=== PATIENT | female | born 1955 | race Hispanic/Latino ===

== ENCOUNTER 2018-05-04 09:14 | Day surgery (SDC) | payer BC ==
[2018-05-02 14:12] VITALS: BMI 36.3
[2018-05-04] MEDS ORDERED: Propofol 10 mg/ml Inj (20 ML) ONE (11:30)
[2018-05-04] MEDS ORDERED: HYDROmorphone 0.5 mg/0.5 ml ISec IVP PRN (11:47)
--- NOTE | 2018-05-04 12:11 | PCM.SURG1 ---
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 good hemostasis, no complicaitns. left labial 1cm cyst along upper one third Post-Operative Diagnosis: same as above Operation Performed: Hysteroscopic myomecotmy, dilation and currettage, incisin and drainage of left labial cyst Specimen/Specimens Removed: endocervical currettings, endometrial currettings, submcuosal myoma, cyst contents (appears to be sebbacious) Estimated Blood Loss: EBL {In ML}: 5 Blood Products Given: N/A Drains Used: No Drains Date of Surgery/Procedure: 05/04/18 Time of Surgery/Procedure: 12:00
[2018-05-04 13:46] VITALS: RESP 18; TEMP 97.7
[2018-05-04 15:00] VITALS: BP 110/60; PULSE 65; O2SAT 99
--- NOTE | 2018-05-05 00:05 | OP ---
Copied To: Pam Gómez MD Attending MD: Pam Gómez MD PROCEDURE DATE: 05/04/2018 SURGEON: Pam Gómez MD CONSULTING SYSTEMS ENGINEER: None. TYPE OF ANESTHESIA: General LMA. PREOPERATIVE DIAGNOSIS: Postmenopausal bleeding fibroids. POSTOPERATIVE DIAGNOSIS: Postmenopausal bleeding fibroids. OPERATIVE FINDINGS: Anteverted uterus. Uterus sounded to 7 cm. Right adnexal mass. Uterine septum with small submucosal myoma type mass near septum. MyoSure device inserted and carefully resected. Bilateral ostia visualized. Good hemostasis. No complications. Left labia, 1 cm cyst along the upper one third. MyoSure device inserted, resected carefully. Good hemostasis noted. Bilateral ostia visualized. Left labia, 1 cm cyst along the upper one third. Incision and drainage . OPERATION PERFORMED: Hysteroscopic myomectomy, dilation and curettage, and incision and drainage of the left labial cyst. SPECIMENS: Endocervical curettings, endometrial curettings, submucosal myoma, and cyst content. ESTIMATED BLOOD LOSS: 5 mL. BLOOD PRODUCTS: None. COMPLICATIONS: None. DESCRIPTION OF PROCEDURE: The patient was taken to the operating room after consent was obtained. Risks, benefits, alternatives, and indications of the procedure were discussed with the patient. The patient was given general anesthesia. Once it was found to be adequate, she was placed on the operating table in dorsal lithotomy position with legs supported using stirrups. The patient was then prepped and draped in the usual sterile fashion. A time-out confirmed correct patient and correct procedure. Please see operative findings. Wilkinson retractor was placed in the anterior and posterior fornix of the vagina. The cervix was adequately visualized. A single-tooth tenaculum was placed in the anterior lip of the cervix. Endocervical curettings were obtained with Keveverian curette, sent to Pathology on [facility]. The uterus was then sounded to 7 cm following which the cervix was sequentially dilated with a dilator to allow for introduction of a 5-mm hysteroscope under direct visualization using distention media. The MyoSure device was then inserted under direct visualization. The mass was then carefully resected. The MyoSure device was then removed. All instruments were removed. Gentle curettage was done and sent to Pathology on [facility]. The single-tooth tenaculum was removed. There was good hemostasis noted. Attention was then turned to the perineum where there was a small 1-cm fluctuant cyst noted on the left labia. The patient was noted to be symptomatic and consent was obtained. A superficial skin incision was made with an 11-blade, less than 1 cm. The cyst contents were then drained with a thick discharge, yellow, which was sent to Pathology. It was then irrigated and cleaned. Then, the space was then closed using a 2-0 chromic. There was good hemostasis. At the end of the procedure, all needle, sponge, and instrument counts were noted and correct x2. The patient tolerated the procedure well and was transferred to the recovery room in stable condition. Pam Gómez MD
== END 2018-05-04 14:40 | disposition home or self-care (01) ==
LOC: C.SDS 09:14
PROVIDERS: ATTEND Obstetrics & Gynecology
DX: D25.0 Submucous leiomyoma of uterus (principal); N95.0 Postmenopausal bleeding; N84.0 Polyp of corpus uteri; N90.7 Vulvar cyst
CPT/HCPCS: 11421; 58561; 82948; 88305; J1100; J1170; J2001; J2405; J2704; J3010